=== PATIENT | male | born 1965 | race Hispanic/Latino ===

== ENCOUNTER 2023-05-29 23:10 | Emergency (ER) | payer OTHER ==
[~2023-05-29] VITALS: Ht 177.8 cm; Wt 112.5 kg
[2023-05-30 00:32] LABS: CREATININE 1.3 mg/dL (0.5-1.5)
[2023-05-30 00:37] LABS: BASOPHILS # (AUTO) 0.04 K/uL (0.00-0.20); BASOPHILS % (AUTO) 0.5 % (0.0-5.0); EOSINOPHILS # (AUTO) 0.33 K/uL (0.00-0.70); HEMATOCRIT 42.8 % (42-54); IMMATURE GRANULOCYTE ABSOLUTE 0.03 K/uL (0-1); LYMPHOCYTES # (AUTO) 2.3 K/uL (1.0-4.8); LYMPHOCYTES % (AUTO) 26.9 % (21.0-51.0); MEAN CORPUSCULAR HEMOGLOBIN 31.7 pg (27.0-33.0); MEAN CORPUSCULAR HGB CONC 34.1 g/dL (32.0-36.0); MEAN CORPUSCULAR VOLUME 92.8 fL (79-99); MONOCYTES # (AUTO) 0.5 K/uL (0.1-1.0); MONOCYTES % (AUTO) 6.3 % (3.0-13.0); NEUTROPHILS # (AUTO) 5.2 K/uL (1.8-7.7); NEUTROPHILS % (AUTO) 61.9 % (40.0-77.0); PLATELET COUNT (AUTO) 199 K/uL (130-400); RED BLOOD CELL COUNT(AUTO) 4.61 MIL/uL (4.50-6.20); RED CELL DISTRIBUTION WIDTH 12.4 % (11.0-15.5); WHITE BLOOD COUNT (AUTO) 8.4 K/uL (4.8-10.8)
[2023-05-30 00:38] LABS: ALBUMIN 3.9 g/dL (3.5-5.0); BILIRUBIN,TOTAL 0.3 mg/dL (0.2-1.0); TOTAL PROTEIN, SERUM 7.3 g/dL (6.0-8.3)
[2023-05-30 00:43] LABS: POTASSIUM 3.7 mmol/L (3.5-5.1)
[2023-05-30] MEDS ORDERED: CEPH500T PO (01:18)
[2023-05-30] MEDS ORDERED: IBUP-1493 PO (01:19)
[2023-05-30] MEDS: LIDOCAINE HCL 1% 20 ML VIAL ONE (01:33)
[2023-05-30 01:36] VITALS: BP 136/78; PULSE 69; RESP 18; O2SAT 100
== END 2023-05-30 01:52 | disposition home or self-care (01) ==
LOC: EDH 23:10
DX: L08.9 Local infection of the skin and subcutaneous tissue, unspecified (principal); L72.3 Sebaceous cyst; E11.9 Type 2 diabetes mellitus without complications; Z98.890 Other specified postprocedural states; Z90.49 Acquired absence of other specified parts of digestive tract
CPT/HCPCS: 12001; 36415; 80053; 83605; 85025; 87040

== ENCOUNTER 2023-09-18 19:35 | Emergency (ER) | payer OTHER ==
[~2023-09-18] VITALS: Ht 177.8 cm; Wt 61.2 kg
[~2023-09-18 19:35] MED LIST: CEPH500T PO; IBUP-1493 PO
[2023-09-18 19:37] VITALS: BP 127/94; PULSE 74; RESP 16
[2023-09-18] MEDS ORDERED: TOBR5DRO46 OU (20:19)
[2023-09-18] MEDS: TOBRAMYCIN/DEXAMETHASONE OPTH SUSP 2.5 ML BOT OU ONE (20:24)
== END 2023-09-18 20:26 | disposition home or self-care (01) ==
LOC: EDH 19:35
DX: H10.9 Unspecified conjunctivitis (principal); E11.9 Type 2 diabetes mellitus without complications; Z90.49 Acquired absence of other specified parts of digestive tract

== ENCOUNTER 2023-12-19 11:56 | Emergency (ER) | payer OTHER ==
[~2023-12-19] VITALS: Ht 177.8 cm; Wt 111.1 kg
[~2023-12-19 11:56] MED LIST changes: +TOBR5DRO46 OU
[2023-12-19 14:38] VITALS: BP 130/76; PULSE 86; RESP 18; TEMP 98.1; O2SAT 98
== END 2023-12-19 14:34 | disposition home or self-care (01) ==
LOC: EDH 11:56
DX: S90.121A Contusion of right lesser toe(s) without damage to nail, initial encounter (principal); E11.9 Type 2 diabetes mellitus without complications; I10 Essential (primary) hypertension; Z79.899 Other long term (current) drug therapy; Z90.49 Acquired absence of other specified parts of digestive tract; Z98.890 Other specified postprocedural states; W22.8XXA Striking against or struck by other objects, initial encounter; Y93.89 Activity, other specified; Y92.89 Other specified places as the place of occurrence of the external cause; Y99.8 Other external cause status
CPT/HCPCS: 73630

== ENCOUNTER → 2025-03-14 | Outpatient (CLI) | payer SELFPAY ==
[~2025-03-14] MED LIST changes: +GADOTERATE MEGLUMINE 10 MMOL/20 ML VIAL IV ONE; -TOBR5DRO46 OU; +TOBR5DRO67 OU
--- NOTE | 2025-03-15 01:20 | HMCIMG ---
EXAM: MRI PELVIS WITH AND WITHOUT IV CONTRAST CLINICAL HISTORY: Diffusely elevated prostate-specific antigen. TECHNIQUE: Multiplanar, multisequence MRI of the pelvis was performed before and after intravenous gadolinium contrast administration. Dynamic contrastenhanced sequences were obtained. DWI sequences were not available. CONTRAST: Intravenous gadolinium contrast was administered. COMPARISON: None. FINDINGS: BONES AND JOINTS: Degenerative changes are present in both hip joints. No focal or diffuse marrow signal abnormality. No evidence of bone marrowinfiltrative disease. The sacrum and iliac bones are unremarkable with no evidence of erosions or destructive osseous lesion. The surrounding muscles demonstrate normal signal intensity. No abnormal enhancement is identified. LYMPH NODES: Few bilateral inguinal lymph nodes are present, the largest in the right superficial horizontal group measuring 1.2 cm in short axis. No pelvic sidewall, obturator, or iliac chain adenopathy. PROSTATE: The prostate gland is enlarged, measuring 5.5 x 6.0 x 5.1 cm. Calculated Prostate Volume: Ellipsoid formula = 0.52 x AP x transverse x craniocaudal 0.52 x 5.5 x 6.0 x 5.1 ? 87.5 cc. Transition Zone: Markedly enlarged with heterogeneous signal and enhancement pattern. Multiple nodules and heterogeneous features are compatible with benign prostatic hyperplasia. Peripheral Zone: A triangular T2-hypointense nodular focus is seen at the 5 oclock position of the left posterior peripheral zone, measuring 8 x 13 mm. The lesion shows no differential contrast enhancement relative to background peripheral zone. No diffusion-weighted sequences are available for assessment. The remainder of the peripheral zone (left posterior and anterior segments) shows uniform contrast enhancement without focal suspicious areas. Rectoprostatic Angles: Clear. PI-RADS (based on T2 + DCE only): PI-RADS 3 (equivocal). Note: Final PI-RADS category is limited due to the unavailability of diffusion-weighted imaging. SEMINAL VESICLES: Seminal vesicles are unremarkable. The left seminal vesicle is slightly larger than the right but maintains normal T2 signal and morphology. BLADDER: Unremarkable. IMPRESSION: 1. Prostatomegaly with calculated prostate volume of approximately 87.5 cc, predominantly due to a markedly enlarged and heterogeneous transition zone consistent with benign prostatic hyperplasia. 2. Left posterior peripheral zone lesion at the 5 oclock position measuring 8 13 mm, T2 hypointense, without differential post-contrast enhancement. 3. PI-RADS (based on T2 + DCE only): PI-RADS 3 (equivocal) Note: Final PI-RADS category is limited due to the unavailability of diffusion-weighted imaging. 4. Recommend follow up prostate MRI in 6 months, surgical consultation and biopsy as clinically indicated. /[place]
== END | disposition home or self-care (01) ==
LOC: RAH 08:46
PROVIDERS: ATTEND Specialist
DX: N40.1 Benign prostatic hyperplasia with lower urinary tract symptoms (principal); R97.20 Elevated prostate specific antigen [PSA]; M16.0 Bilateral primary osteoarthritis of hip
CPT/HCPCS: 72197; A9575